=== PATIENT | male | born 1990 | race African-American/Black ===

== ENCOUNTER 2018-12-26 21:14 | Emergency (ER) | payer OTHER ==
[~2018-12-26] VITALS: Ht 165.1 cm; Wt 68.0 kg
[2018-12-26 21:29] LABS: URINE BILIRUBIN NEGATIVE (Negative); URINE BLOOD NEGATIVE (Negative); URINE CLARITY CLEAR; URINE COLOR YELLOW; URINE GLUCOSE-RANDOM NEGATIVE (Negative); URINE KETONES NEGATIVE (Negative); URINE LEUKOCYTES-REFLEX NEGATIVE (Negative); URINE NITRITE-REFLEX NEGATIVE (Negative); URINE PROTEIN NEGATIVE (Negative); URINE SPECIFIC GRAVITY >= 1.030 (1.005-1.030)
[2018-12-26] MEDS ORDERED: DOXYCYCLINE 10100 MG PO (21:31)
[2018-12-26 22:20] VITALS: BP 130/74
== END 2018-12-26 22:21 | disposition home or self-care (01) ==
LOC: M.ERS 21:14
PROVIDERS: Nurse Practitioner Family
DX: N34.2 Other urethritis (principal)